=== PATIENT | female | born 1995 | race American Indian/Alaskan Native ===

== ENCOUNTER 2016-06-05 02:50 | Emergency (ER) | payer OTHER ==
[2016-06-05 03:18] VITALS: BP 105/63
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
== END 2016-06-05 05:16 | disposition left against medical advice (07) ==
LOC: ED 02:50
DX: S93.402S Sprain of unspecified ligament of left ankle, sequela (principal); V47.6XXA Car passenger injured in collision with fixed or stationary object in traffic accident, initial encounter; Y93.89 Activity, other specified; Y99.9 Unspecified external cause status; Y92.410 Unspecified street and highway as the place of occurrence of the external cause
CPT/HCPCS: 99284

== ENCOUNTER 2016-06-07 10:37 | Emergency (ER) | payer OTHER ==
[2016-06-07] MEDS ORDERED: PERCOCET 5/325 PO ONE (12:47)
[2016-06-07] MEDS ORDERED: ZOFRAN ODT PO ONE (12:47)
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
[2016-06-07 14:38] LABS: Bilirubin,Urine NEG (Negative); Blood,Urine NEG (Negative); Ketones,Urine 20 mg/dL (Negative); Leukocyte Esterase,Urine SM (Negative); Mucus,Urine 3+ /HPF; Nitrite,Urine NEG (Negative)
[2016-06-07 15:09] VITALS: BP 102/50
== END 2016-06-07 15:20 | disposition home or self-care (01) ==
LOC: ED 10:37
DX: J02.9 Acute pharyngitis, unspecified (principal); R50.9 Fever, unspecified; M79.1 Myalgia; F17.200 Nicotine dependence, unspecified, uncomplicated
CPT/HCPCS: 81001; 81025; 87400; 87430; 99283; Q0162

== ENCOUNTER 2016-08-18 14:52 | Emergency (ER) | payer SELFPAY ==
[2016-08-18 15:05] VITALS: BP 92/59
== END 2016-08-18 15:30 | disposition left against medical advice (07) ==
LOC: ED 14:52
DX: R10.9 Unspecified abdominal pain (principal); M25.572 Pain in left ankle and joints of left foot; Z53.21 Procedure and treatment not carried out due to patient leaving prior to being seen by health care provider